=== PATIENT | female | born 1980 | race Caucasian/White ===

== ENCOUNTER 2018-11-06 22:46 | Emergency (ER) | payer MEDICAID ==
[~2018-11-06] VITALS: Ht 172.7 cm; Wt 59.0 kg
--- NOTE | 2018-11-06 22:50 | NUR ---
CALLED FROM WAITING ROOM, NO ANSWER.
--- NOTE | 2018-11-06 22:56 | NUR ---
CALLED FROM WAITING ROOM, NO ANSWER.
--- NOTE | 2018-11-06 23:02 | NUR ---
CALLED FROM WAITING ROOM, NO ANSWER.
--- NOTE | 2018-11-06 23:11 | NUR ---
CALLED FROM WAITING ROOM, NO ANSWER.
--- NOTE | 2018-11-06 23:57 | NUR ---
BIBS W/ C/O SOB AND PRODUSCTIVE COUGH X 3 DAYS. AFEBRILE. PMH OF ASTHMA AND HAS BEEN TAKING HER MEDDS.. + WHEEZING. PT WAS PLACED ON A MONITOR.
--- NOTE | 2018-11-07 00:06 | NUR ---
CALLED RT FOR BREATHING TX
[2018-11-07] MEDS ORDERED: predniSONE 20 MG TABLET ONE (00:20)
[2018-11-07] MEDS ORDERED: IPRATROPIUM NEB FS 0.5 MG/2.5 ML AMPUL.NEB NEB ONE ×2 (00:30→03:00)
[2018-11-07] MEDS ORDERED: predniSONE 20 MG TABLET PO ONE (00:30)
[2018-11-07] MEDS ORDERED: ALBUTEROL FS 2.5 MG/3 ML VIAL.NEB NEB ONE ×2 (00:30→03:00)
--- NOTE | 2018-11-07 00:34 | NUR ---
followed up w/ RT re breathing Tx
[2018-11-07] MEDS ORDERED: IPRATROPIUM NEB FS 0.5 MG/2.5 ML AMPUL.NEB ONE ×2 (00:39→02:55)
[2018-11-07] MEDS ORDERED: ALBUTEROL FS 2.5 MG/0.5 ML VIAL.NEB ONE ×2 (00:39→02:55)
[2018-11-07 04:02] VITALS: BP 117/68
--- NOTE | 2018-11-07 04:15 | NUR ---
Patient given written and verbal discharge instructions. Patient verbalized understanding of instructions. Patient is ambulatory with steady gait. Refuses offer of skilled nursing placement. Patient given sandwich and snacks. pt has proper clothing on and will provide her own transportation.
== END 2018-11-07 04:15 | disposition home or self-care (01) ==
LOC: ER 22:50
DX: J44.9 Chronic obstructive pulmonary disease, unspecified (principal); F17.200 Nicotine dependence, unspecified, uncomplicated
CPT/HCPCS: 71045; 93005; 94640 ×2; 99284; J7512